=== PATIENT | female | born 1945 | race Caucasian/White ===

== ENCOUNTER → 2018-01-18 | Outpatient (CLI) | payer MEDICARE, OTHER | END | disposition home or self-care (01) | LOC: PLD 10:41 → LAB SHORT 10:41 | DX: D48.5 Neoplasm of uncertain behavior of skin (principal); L82.1 Other seborrheic keratosis | CPT/HCPCS: 88305 ==

== ENCOUNTER 2018-05-18 23:53 | Emergency (ER) | payer MEDICARE, OTHER ==
[~2018-05-18] VITALS: Ht 167.6 cm; Wt 74.4 kg
== END 2018-05-19 04:20 | disposition left against medical advice (07) ==
LOC: ER 23:53
DX: Z53.21 Procedure and treatment not carried out due to patient leaving prior to being seen by health care provider (principal)

== ENCOUNTER → 2019-04-11 | Outpatient (CLI) | payer MEDICARE, OTHER ==
[2019-04-15 15:06] LABS: HPV 16 Positive (Negative); HPV 18 Negative (Negative); HPV OTHER HR TYPES Negative (Negative)
== END | disposition home or self-care (01) ==
LOC: LAB SHORT 13:00 → LAB 13:00
PROVIDERS: Family Medicine
DX: Z12.4 Encounter for screening for malignant neoplasm of cervix (principal)
CPT/HCPCS: 87624; 87625; G0123